=== PATIENT | female | born 1975 | race Caucasian/White ===

== ENCOUNTER → 2017-02-09 | Outpatient (CLI) | payer OTHER, MEDICAID ==
[~2017-02-09] VITALS: Ht 154.9 cm; Wt 94.4 kg
[~2017-02-09] MED LIST: ACETAMINOPHEN 500 MG CPLT PO ONE; CELE40TA PO; CHLORHEXIDINE GLUCONATE 2 % 1 PACK (2 CLOTHS) TOPICAL PRN; INSULIN HUMAN REGULAR 1,000 UNITS/10 ML VIAL SQ PRN; LACTATED RINGER'S 1000 ML IV PRN; LAMO100 PO; METOPROLOL TARTRATE 25 MG TAB PO PRN; MORP1INJ INTRACATH; POVIDONE IODINE 5% (ANTISEPSIS KIT) 4 APPLICATIONS EACH NARE PRN; PROPOFOL 200 MG/20 ML AMP IV ONE; SODIUM CHLORID 0.9% 500 ML IV PRN; [UNRECOGNIZED DRUG - OTHER] PO
[2017-02-09 06:21] VITALS: BP 120/78; PULSE 74; RESP 16; TEMP 98.5; O2SAT 100
--- NOTE | 2017-02-09 08:14 | GIPROC ---
[facility] [address] [facility]. [facility], [address] EGD PROCEDURE REPORT EXAM DATE: 02/09/2017 PATIENT NAME: Joana Vann MR #: [id number] BIRTHDATE: 1975 ATTENDING: Adria Truong MD ORDER #: [id number] PREDATORY ANIMAL TRAPPER: Alexis Desai STATUS: outpatient INDICATIONS: The patient is a 41 yr old female here for an EGD due to heartburn PROCEDURE PERFORMED: EGD w/ biopsy MEDICATIONS: None and Per Anesthesia. TOPICAL ANESTHETIC: none CONSENT: The patient understands the risks and benefits of the procedure and understands that these risks include, but are not limited to: sedation, allergic reaction, infection, perforation and/or bleeding. Alternative means of evaluation and treatment include, among others: physical exam, x-rays, and/or surgical intervention. The patient elects to proceed with this endoscopic procedure. medical equipment was checked for proper function. Hand hygiene and appropriate measures for infection prevention was taken. After the risks, benefits and alternatives of the procedure were thoroughly explained, Informed consent was verified, confirmed and timeout was successfully executed by the treatment team. The patient was anesthetized with anesthesia but developed stridor and an ET tube was placed. The Pentax EG-[id number] endoscope was introduced through the mouth and advanced to the first portion of the duodenum. There was no evidence of lesions or abnormality. Biopsy was done fo the antrum for H. Pylori. Retroflexed views revealed no abnormalities The gastroscope was then slowly withdrawn and removed. Patient was monitored until her saturations were 100%. The endoscopy was otherwise normal. ADVERSE EVENTS: There were no complications. IMPRESSIONS: 1. Normal endoscopy otherwise 2. Retroflexed views revealed no abnormalities RECOMMENDATIONS: Await biopsy results. Biopsy results will not be ready for 7-10 days. If you don't hear from us in two weeks, call our office for biopsy results. PATIENT CONDITION: fair DISPOSITION: Home REPEAT EXAM: NONE Adria Truong MD eSigned: Adria Truong MD 02/09/2017 8:13 AM cc:
[2017-02-09 08:20] VITALS: TEMP 97.7
[2017-02-09 09:00] VITALS: BP 134/69; PULSE 88; RESP 20; O2SAT 98
== END ==
LOC: HEND 05:43
PROVIDERS: ATTEND Surgery
DX: K29.50 Unspecified chronic gastritis without bleeding (principal); K21.9 Gastro-esophageal reflux disease without esophagitis; R12 Heartburn
CPT/HCPCS: 88305; 88312

== ENCOUNTER 2017-04-13 10:35 | Inpatient (IN) | payer OTHER, MEDICARE ==
[~2017-04-13] VITALS: Ht 154.9 cm; Wt 93.0 kg
[~2017-04-13 10:35] MED LIST changes: -ACETAMINOPHEN 500 MG CPLT PO ONE; -CHLORHEXIDINE GLUCONATE 2 % 1 PACK (2 CLOTHS) TOPICAL PRN; -INSULIN HUMAN REGULAR 1,000 UNITS/10 ML VIAL SQ PRN; -LACTATED RINGER'S 1000 ML IV PRN; -METOPROLOL TARTRATE 25 MG TAB PO PRN; -POVIDONE IODINE 5% (ANTISEPSIS KIT) 4 APPLICATIONS EACH NARE PRN; -PROPOFOL 200 MG/20 ML AMP IV ONE; -SODIUM CHLORID 0.9% 500 ML IV PRN; -[UNRECOGNIZED DRUG - OTHER] PO
[2017-05-03] MEDS ORDERED: CHLORHEXIDINE GLUCONATE 2 % 1 PACK (2 CLOTHS) TOPICAL PRN (06:00)
[2017-05-03] MEDS ORDERED: METOPROLOL TARTRATE 25 MG TAB PO PRN (06:00)
[2017-05-03] MEDS ORDERED: LACTATED RINGER'S 1000 ML IV PRN (06:00)
[2017-05-03] MEDS ORDERED: INSULIN HUMAN REGULAR 1,000 UNITS/10 ML VIAL SQ PRN (06:00)
[2017-05-03] MEDS ORDERED: POVIDONE IODINE 5% (ANTISEPSIS KIT) 4 APPLICATIONS EACH NARE PRN (06:00)
[2017-05-03] MEDS ORDERED: SODIUM CHLORID 0.9% 500 ML IV PRN (06:00)
[2017-05-03] MEDS ORDERED: metroNIDAZOLE 500 MG INJ 100 ML IV ONE (06:23)
[2017-05-03] MEDS ORDERED: APREPITANT 40 MG CAP ONE (06:23)
[2017-05-03] MEDS ORDERED: ONDANSETRON HCL 4 MG/2 ML VIAL ONE (06:24)
[2017-05-03] MEDS ORDERED: ACETAMINOPHEN 1000 MG/100 ML VIAL IV ONE (06:24)
[2017-05-03] MEDS ORDERED: SCOPOLAMINE 1.5 MG PATCH ONE (06:24)
[2017-05-03 06:26] VITALS: BP 125/69; PULSE 78; RESP 18; TEMP 98.2; O2SAT 97
[2017-05-03] MEDS ORDERED: ceFAZolin 2 GM PREMIX 50 ML ONE (06:58)
[2017-05-03] MEDS ORDERED: FAMOTIDINE 20 MG/2 ML VIAL ONE (07:02)
[2017-05-03] MEDS ORDERED: MIDAZOLAM HCL 2 MG/2 ML VIAL ONE (07:02)
[2017-05-03] MEDS ORDERED: BUPIVACAINE/EPINEPHRINE 0.25% 50 ML VIAL ONE (07:02)
[2017-05-03] MEDS ORDERED: METHYLENE BLUE 100 MG/10 ML VIAL OTHER ONE (07:54)
[2017-05-03] MEDS ORDERED: ENALAPRILAT 1.25 MG/ML VIAL IV PUSH PRN (09:30)
[2017-05-03] MEDS ORDERED: HYDROmorphone HCL 2 MG TAB PO PRN (09:30)
[2017-05-03] MEDS ORDERED: Post-op Orders (for Pharmacy) MISC OTHER ONE (09:30)
[2017-05-03] MEDS ORDERED: diphenhydrAMINE HCL ELIXIR 12.5 MG/5 ML CUP PO PRN (09:30)
[2017-05-03] MEDS ORDERED: ACETAMINOPHEN 325MG/HYDROcodone 7.5MG/15ML UDC PO PRN ×2 (09:30)
[2017-05-03] MEDS ORDERED: diphenhydrAMINE HCL 50 MG/ML VIAL IV PRN (09:30)
[2017-05-03] MEDS ORDERED: SODIUM CHLORIDE 0.9% FLUSH 10 ML FLUSH IV FLUSH PRN (09:30)
--- NOTE | 2017-05-03 09:31 | HHI.PR ---
Immediate Post Op Note Procedure Date: May 03, 2017 Pre Op Diagnosis: morbid obesity bmi 39, ra, htn, cale Post Op Diagnosis: same Surgeon: Adria Truong MD Poultry Processing Supervisor(s): Dr. Estevez Procedure: lap sleeve Findings: no leak from methylene blue, scant blood at staple line Complications: none Specimen(s) removed: none Estimated blood loss: 5cc Anesthesia: General Drains: None Patient to: PACU Patient Condition: Good Adria Truong MD May 03, 2017 09:31
[2017-05-03] MEDS ORDERED: DO NOT ADM ANY ANTICOAGULANT DRUGS PRN (09:35)
[2017-05-03] MEDS ORDERED: PROMETHAZINE INJ 25 MG/ML VIAL ONE (09:41)
[2017-05-03] MEDS ORDERED: fentaNYL CITRATE 250 MCG/5 ML AMP ONE (09:47)
[2017-05-03] MEDS ORDERED: *morphine SULFATE 8 MG/ML PERIprocedure ONLY ONE ×2 (09:52→10:30)
[2017-05-03] MEDS ORDERED: *MEPERIDINE 25 MG INJ VIAL PERIprocedural Use ONLY ONE (10:12)
[2017-05-03] MEDS: PANTOPRAZOLE SOD 40 MG DELAYED RELEASE TAB PO SCH (12:00)
[2017-05-03] MEDS: D5-1/2 NS + KCL 20 MEQ INJ 1,000 ML IV SCH ×2 (12:00→20:40)
[2017-05-03] MEDS: RESP: ALBUTEROL 2.5 MG/3 ML NEB (SCH) INH ×3 (12:40→23:52)
[2017-05-03] MEDS: METOCLOPRAMIDE HCL 10 MG/2 ML VIAL IV PUSH SCH ×2 (12:45→16:57)
[2017-05-03] MEDS: PANTOPRAZOLE SODIUM 40 MG VIAL IV PUSH SCH (12:45)
[2017-05-03] MEDS ORDERED: PROPOFOL 200 MG/20 ML AMP IV ONE (14:04)
[2017-05-03] MEDS ORDERED: NEOSTIGMINE 3 MG/3 ML SYR IV ONE (14:05)
[2017-05-03] MEDS ORDERED: ePHEDrine/NS 25 MG/5 ML SYR IV ONE (14:05)
[2017-05-03] MEDS ORDERED: ONDANSETRON HCL 4 MG/2 ML VIAL IV PUSH ONE (14:06)
[2017-05-03] MEDS ORDERED: PHENYLEPH/NS 1000 MCG/10 ML SYR IV ONE (14:06)
[2017-05-03] MEDS ORDERED: LACTATED RINGER'S 1000 ML INJ 1,000 ML IV ONE (14:06)
[2017-05-03] MEDS: ENOXAPARIN SODIUM 40 MG/0.4 ML SYRINGE SQ SCH (14:32)
[2017-05-03] MEDS: metroNIDAZOLE 500 MG INJ 100 ML IV SCH ×2 (14:33→20:40)
[2017-05-03 16:00] VITALS: BP 151/81; PULSE 88; RESP 16; TEMP 97.8; O2SAT 97
[2017-05-03 16:35] VITALS: O2SAT 99
[2017-05-03] MEDS: PCA - TOTAL MG MORPHINE DELIVERED PER SHIFT SCH ×2 (18:00→20:40)
[2017-05-03] MEDS ORDERED: MORPHINE SULFATE 30 MG/30 ML PCA IV SCH (18:00)
[2017-05-03] MEDS ORDERED: NALOXONE HCL 0.4 MG/ML AMP IV PRN (18:00)
[2017-05-03 20:00] VITALS: BP 146/79; PULSE 86; RESP 21; TEMP 98.4; O2SAT 97
[2017-05-03] MEDS: ONDANSETRON HCL 4 MG/2 ML VIAL IV PRN (20:39)
[2017-05-03] MEDS: SODIUM CHLORIDE 0.9% FLUSH 10 ML FLUSH IV FLUSH SCH (21:00)
[2017-05-04] VITALS: BP 163/84; PULSE 95; RESP 20; TEMP 99.3; O2SAT 96
[2017-05-04] MEDS: METOCLOPRAMIDE HCL 10 MG/2 ML VIAL IV PUSH SCH ×2 (00:53→06:01)
[2017-05-04] MEDS: RESP: ALBUTEROL 2.5 MG/3 ML NEB (SCH) INH ×6 (04:00→23:41)
[2017-05-04 05:32] LABS: AUTOMATED NEUTROPHIL # 11.8 TH/MM3 (1.8-7.7); BASOPHIL % 0.2 % (0.0-2.0); HEMATOCRIT 36.9 % (35.0-46.0); HEMO FLAGS DIFF FINAL; LYMPHOCYTE # 1.2 TH/MM3 (1.0-4.8); MEAN CELL VOLUME 75.2 FL (80.0-100.0); MEAN CORPUSCULAR HEMOGLOBIN 24.5 PG (27.0-34.0); MEAN CORPUSCULAR HGB CONC 32.6 % (32.0-36.0); MONO % 4.2 % (0.0-8.0); NEUT % 86.6 % (16.0-70.0); PLATELET COUNT 308 TH/MM3 (150-450); RED BLOOD COUNT 4.91 MIL/MM3 (4.00-5.30); RED CELL DISTRIBUTION WIDTH 16.3 % (11.6-17.2); WHITE BLOOD COUNT 13.6 TH/MM3 (4.0-11.0)
[2017-05-04 05:57] LABS: BICARBONATE 27.1 MEQ/L (21.0-32.0); MAGNESIUM 2.1 MG/DL (1.5-2.5); POTASSIUM 3.4 MEQ/L (3.5-5.1)
[2017-05-04] MEDS: PCA - TOTAL MG MORPHINE DELIVERED PER SHIFT SCH ×3 (06:00→21:17)
[2017-05-04] MEDS: metroNIDAZOLE 500 MG INJ 100 ML IV SCH (06:00)
[2017-05-04] MEDS: D5-1/2 NS + KCL 20 MEQ INJ 1,000 ML IV SCH ×3 (06:00→20:00)
[2017-05-04 08:00] VITALS: BP 150/78; PULSE 77; RESP 16; TEMP 97.2; O2SAT 98
[2017-05-04] MEDS: SODIUM CHLORIDE 0.9% FLUSH 10 ML FLUSH IV FLUSH SCH ×2 (09:00→21:00)
[2017-05-04] MEDS: PANTOPRAZOLE SODIUM 40 MG VIAL IV PUSH SCH (09:00)
[2017-05-04] MEDS: PANTOPRAZOLE SOD 40 MG DELAYED RELEASE TAB PO SCH (09:00)
[2017-05-04] MEDS: ONDANSETRON HCL 4 MG/2 ML VIAL IV PRN ×2 (09:24→21:17)
[2017-05-04] MEDS ORDERED: METOCLOPRAMIDE HCL 10 MG/2 ML VIAL IV PUSH PRN (09:30)
[2017-05-04] MEDS ORDERED: HYOSCYAMINE SOLN 0.125 MG/ML 15 ML BTL PO PRN (11:00)
[2017-05-04] MEDS ORDERED: DEXAMETHASONE SOD PHOS 20 MG/5 ML VIAL IM ONE (11:00)
[2017-05-04 12:00] VITALS: BP 145/78; PULSE 86; RESP 16; TEMP 96.6; O2SAT 99
--- NOTE | 2017-05-04 12:27 | HHI.PR ---
Subjective Subjective Notes 41yo female POD#1 VSG. Laying in bed complains of nausea and pain unrelieved with medication. Objective Vitals/I&O Vital Signs Date Time Temp Pulse Resp B/P Pulse Ox O2 Delivery O2 Flow Rate FiO2 05/04/17 08:00 97.2 77 16 150/78 98 05/04/17 06:00 18 05/04/17 00:00 99.3 95 20 163/84 96 05/03/17 20:40 18 05/03/17 20:00 98.4 86 21 146/79 97 05/03/17 18:40 20 05/03/17 18:35 22 05/03/17 16:35 99 21 05/03/17 16:00 97.8 88 16 151/81 97 05/03/17 13:50 97.7 96 16 150/84 96 Nasal Cannula 2 05/03/17 13:00 95 16 152/80 96 Nasal Cannula 2 Vital Signs Date Time Temp Pulse Resp B/P Pulse Ox O2 Delivery O2 Flow Rate FiO2 05/04/17 08:00 97.2 77 16 150/78 98 05/03/17 16:35 21 05/03/17 13:50 Nasal Cannula 2 Labs Laboratory Tests Test 05/04/17 04:03 White Blood Count 13.6 Red Blood Count 4.91 Hemoglobin 12.0 Hematocrit 36.9 Mean Corpuscular Volume 75.2 Mean Corpuscular Hemoglobin 24.5 Mean Corpuscular Hemoglobin 32.6 Concent Red Cell Distribution Width 16.3 Platelet Count 308 Mean Platelet Volume 8.9 Neutrophils (%) (Auto) 86.6 Lymphocytes (%) (Auto) 9.0 Monocytes (%) (Auto) 4.2 Eosinophils (%) (Auto) 0.0 Basophils (%) (Auto) 0.2 Neutrophils # (Auto) 11.8 Lymphocytes # (Auto) 1.2 Monocytes # (Auto) 0.6 Eosinophils # (Auto) 0.0 Basophils # (Auto) 0.0 CBC Comment DIFF FINAL Differential Comment Sodium Level 138 Potassium Level 3.4 Chloride Level 103 Carbon Dioxide Level 27.1 Anion Gap 8 Blood Urea Nitrogen 5 Creatinine 0.76 Estimat Glomerular Filtration 83 Rate Random Glucose 142 Calcium Level 8.3 Magnesium Level 2.1 Cardiovascular: Regular Lungs: Clear Abdomen: Post-op tenderness Extremities: Perfused Wound Wound : Wound Location: Abdomen Appearance: Clean & Dry A/P Assessment and Plan Add Levsin and Decadron for pain and nausea Needs to increase ambulation Increase fluids as tolerated Discharge Planning Possibly tomorrow [facility] May 04, 2017 12:27
[2017-05-04] MEDS ORDERED: DEXAMETHASONE SOD PHOS 20 MG/5 ML VIAL IV PUSH ONE (12:30)
[2017-05-04 15:17] VITALS: O2SAT 99
[2017-05-04 16:00] VITALS: BP 170/92; PULSE 82; RESP 18; TEMP 97.1; O2SAT 99
[2017-05-04] MEDS: KETOROLAC TROMETHAMINE 30 MG/ML (IVP) VIAL IV PUSH SCH ×2 (16:51→21:17)
[2017-05-04] MEDS: SUCRALFATE 1 GM/10 ML CUP PO SCH ×2 (16:53→21:17)
[2017-05-04] MEDS: ENOXAPARIN SODIUM 40 MG/0.4 ML SYRINGE SQ SCH (16:54)
[2017-05-04 20:05] VITALS: BP 135/80; PULSE 77; RESP 17; TEMP 98.6; O2SAT 94
[2017-05-04] MEDS ORDERED: CITALOPRAM HYDROBROMIDE 40 MG TAB PO SCH (21:00)
[2017-05-04] MEDS ORDERED: lamoTRIgine 100 MG TAB PO SCH (21:00)
[2017-05-05 00:10] VITALS: BP 134/82; PULSE 84; RESP 20; TEMP 97.3; O2SAT 96
[2017-05-05] MEDS: RESP: ALBUTEROL 2.5 MG/3 ML NEB (SCH) INH ×2 (03:15→07:53)
[2017-05-05] MEDS: KETOROLAC TROMETHAMINE 30 MG/ML (IVP) VIAL IV PUSH SCH ×2 (03:27→08:49)
[2017-05-05] MEDS: D5-1/2 NS + KCL 20 MEQ INJ 1,000 ML IV SCH (03:27)
[2017-05-05 04:15] VITALS: BP 137/80; PULSE 87; RESP 18; TEMP 98.7; O2SAT 98
[2017-05-05] MEDS: PCA - TOTAL MG MORPHINE DELIVERED PER SHIFT SCH (06:00)
[2017-05-05] MEDS: SUCRALFATE 1 GM/10 ML CUP PO SCH ×2 (06:12→08:47)
[2017-05-05 07:53] VITALS: O2SAT 100
[2017-05-05 08:00] VITALS: BP 121/78; PULSE 79; RESP 16; TEMP 97.8; O2SAT 100
[2017-05-05] MEDS: PANTOPRAZOLE SODIUM 40 MG VIAL IV PUSH SCH (08:49)
[2017-05-05] MEDS: SODIUM CHLORIDE 0.9% FLUSH 10 ML FLUSH IV FLUSH SCH (08:49)
[2017-05-05] MEDS: ONDANSETRON HCL 4 MG/2 ML VIAL IV PRN (08:49)
[2017-05-05] MEDS: PANTOPRAZOLE SOD 40 MG DELAYED RELEASE TAB PO SCH (08:49)
[2017-05-05 12:00] VITALS: BP 121/81; PULSE 69; RESP 18; TEMP 98.6; O2SAT 100
[2017-05-05] MEDS: ENOXAPARIN SODIUM 40 MG/0.4 ML SYRINGE SQ SCH (12:19)
--- NOTE | 2017-05-05 12:32 | HHI.PR ---
Subjective Subjective Notes POD#2 VSG. Looks much better today. Sitting up on the side of the bed. Able to tolerate PO fluids. Passing flatus Objective Vitals/I&O Vital Signs Date Time Temp Pulse Resp B/P Pulse Ox O2 Delivery O2 Flow Rate FiO2 05/05/17 08:00 97.8 79 16 121/78 100 05/05/17 07:53 21 05/03/17 13:50 Nasal Cannula 2 Cardiovascular: Regular Lungs: Clear Abdomen: Post-op tenderness Extremities: No edema, Perfused Wound Wound : Wound Location: Abdomen Appearance: Clean & Dry A/P Assessment and Plan Continue to increase PO fluids Needs to increase ambulation Discharge Planning D/C home today [facility] Ashley May 05, 2017 12:32
[2017-05-05] MEDS ORDERED: HYOS0.1231 PO (12:37)
[2017-05-05] MEDS ORDERED: SUCR1S PO (12:37)
--- NOTE | 2017-05-05 14:59 | MP ---
cc: KRYSTAL TRUONG MD DATE OF SURGERY: 05/03/2017 PREOPERATIVE DIAGNOSIS 1. Morbid obesity, BMI of 39.3. 2. Rheumatoid arthritis. 3. Obstructive sleep apnea. 4. Hypertension. POSTOPERATIVE DIAGNOSIS 1. Morbid obesity, BMI of 39.3. 2. Rheumatoid arthritis. 3. Obstructive sleep apnea. 4. Hypertension. PROCEDURE PERFORMED Laparoscopic vertical sleeve gastrectomy. SURGEON Dr. Krystal Truong ENGINEERING PROGRAMMER Dr. Davis Calabrese needed; due to the complexity of the case Dr. Calabrese aided in camera control and retraction. ANESTHESIA General endotracheal. IV FLUIDS See anesthesia sheet. ESTIMATED BLOOD LOSS 5 cc. DRAINS None. COMPLICATIONS None. WOUND CLASSIFICATION Clean and contaminated. COMPLICATIONS None. INDICATION The patient is a 41-year-old female who presented with morbid obesity, BMI of 39.9. She had multiple attempts at weight loss without success. She has multiple co-morbidities as result. Decision was made for operative intervention including laparoscopic sleeve gastrectomy. DETAILS OF PROCEDURE The patient was taken to the operating suite and placed in supine position. She was prepped and draped in the usual sterile fashion after induction of general endotracheal anesthesia. A brief timeout was done stating correct patient, procedure and surgical site, and all were in agreement with this. Attention was first directed to the subxiphoid area. 15 cm was marked distal to the xiphoid at the midline. Local anesthetic was injected. A OptiView 5 mm trocar was used under direct visualization and entered into the peritoneum. The abdomen was insufflated to 15 mmHg pneumoperitoneum.. A right lower quadrant 5 mm port was placed which assisted with retraction of the left lobe of the liver. The patient then placed in reverse Trendelenburg. Three other ports were placed, one 15 mm right lower quadrant port above the current pain pump in the right lower quadrant followed by two 5 mm ports in the left lower quadrant and left lateral lower quadrant. This was done under direct visualization and local anesthetic was injected at all the port sites. The greater curvature of the stomach was identified and using the Harmonic scalpel the greater curve omentum was taken down from 5 cm from the pylorus all the way up to the angle of His. Also the posterior ligamentous attachments were taken down as well. A 36-[place] ViSiGi bougie was placed at the beginning of the case and was advanced to use as a calibration device in order to facilitate construction of our sleeve gastrectomy. Next, using an Endo GUILLAUME-60 black load followed by green and gold loads were done in order to transect and staple the stomach all the way from 5 cm from the pylorus to the angle of His. These were all reinforced with SeamGuard. We had adequate length between the angle of His as to avoid being too close to the GE junction, approximately 1.5 cm. Next, the bougie was removed and methylene blue was placed, 70 cc x2, in order to test the staple line without evidence of leaking. Following this a 2-0 Stratafix suture was used to affix the detached omentum from the stomach to be approximated to the sleeve staple line. Evicel was placed at all staple lines to ensure good hemostasis. Following this the liver retractor was removed under direct visualization. Hemostasis was obtained and appropriate. The stomach was removed through the 15 port. Next, the 15 port was closed with 0 Vicryl in a [id number] fashion. The port sites were closed with 4-0 Monocryl. Sterile dressings were placed. There was no intraoperative complication. All lap and instrument counts were correct at the end of the procedure. The patient was extubated and taken to the PACU. MD KAITLYNN Novoa/MORE /9:50 PM /2:30 PM
[2017-05-05 16:00] VITALS: BP 127/74; PULSE 75; RESP 17; TEMP 97.4; O2SAT 100
== END 2017-05-05 17:17 | disposition home or self-care (01) | DRG 621 ==
LOC: HSDI 05-03 05:26 → N07A 05-03 13:55
PROVIDERS: ADMIT Surgery; ATTEND Surgery
PROC: 0DB64Z3 Excision of Stomach, Percutaneous Endoscopic Approach, Vertical (ICD-10-PCS; principal; 2017-05-03 07:23)
DX: E66.01 Morbid (severe) obesity due to excess calories (principal); I10 Essential (primary) hypertension; G47.33 Obstructive sleep apnea (adult) (pediatric); M06.9 Rheumatoid arthritis, unspecified; Z68.39 Body mass index [BMI] 39.0-39.9, adult
CPT/HCPCS: 36415; 80048; 83735; 85025; 94150; 94664; C9113; J0131; J0690; J1100; J1650; J1885; J2175; J2250; J2270; J2370; J2405; J2550; J2710; J2765; J3010; J3480; J7120; J7613; J8501

== ENCOUNTER → 2017-05-02 | Outpatient (CLI) | payer OTHER ==
[~2017-05-02] MED LIST changes: +HYOS0.1231 PO; +SUCR1S PO
[2017-05-02 11:09] LABS: BICARBONATE 27.2 MEQ/L (21.0-32.0); POTASSIUM 4.5 MEQ/L (3.5-5.1)
== END ==
LOC: CLAB 10:16
PROVIDERS: ATTEND Nurse Practitioner
DX: Z01.818 Encounter for other preprocedural examination (principal)
CPT/HCPCS: 36415; 80048